=== PATIENT | male | born 1955 | race Caucasian/White ===

== ENCOUNTER 2019-01-03 06:49 | Day surgery (SDC) | payer MEDICARE ==
[2019-01-03] MEDS ORDERED: Propofol 200 MG/20 ML SDV ONE (07:51)
[2019-01-03] MEDS ORDERED: Midazolam 1 MG/ML 2 ML SDV ONE (07:51)
[2019-01-03] MEDS ORDERED: fentaNYL 100 MCG/2 ML SDV ONE (07:51)
[2019-01-03] MEDS ORDERED: Sodium Chloride 0.9% 1,000 ML IV SCH (08:30)
--- NOTE | 2019-01-03 13:37 | PROC ---
DATE OF PROCEDURE: 01/03/2019 SURGEON: Samson Ulrich MD PROCEDURE: Esophagogastroduodenoscopy. INDICATIONS: He has been having diarrhea and abdominal pain. The risks and benefits were explained to the patient and was taken to the OR. PROCEDURE IN DETAIL: We used the 180 Olympus scope, was placed into the pharynx and the esophagus without difficulty, passed under direct vision, guided into the first and second part of the duodenum. Upon retraction of the tube, noted no ulceration or abnormality in the small intestine. The tube was brought back into the stomach. Retroflexion into the fundus revealed no abnormality. The antrum was unremarkable. No pathology was noted. The GE junction was identified. The remainder of the esophagus was unremarkable. The tube was removed. The patient tolerated the procedure well. PREOPERATIVE DIAGNOSIS: Diarrhea and abdominal pain. POSTOPERATIVE DIAGNOSIS: Normal small intestine, stomach, and esophagus. This does not explain his abdominal pain or his diarrhea. Samson Ulrich MD /[id number]
--- NOTE | 2019-01-03 13:52 | PROC ---
DATE OF PROCEDURE: 01/03/2019 SURGEON: Samson Ulrich MD PROCEDURE: Colonoscopy. INDICATIONS: This is being done because of significant diarrhea. The risks and benefits were explained to the patient and was taken to the OR. PROCEDURE IN DETAIL: Anesthesia was given by nurse warp tier. During the procedure, we used 2 mg of Versed, 2 mL of fentanyl, and 200 mg of propofol. The Olympus 180AL scope was used. It was placed into the rectum and advanced under direct vision. The rectum was very large with no sphincter tone. The tube was advanced and did get to the cecum by using the turbo on the scope. There was significant amount of fluid noted throughout the colon, which was removed by suction. Upon retraction of the tube, there were multiple diverticula noted, but only isolated ones. There were no polyps, lesions, or any other abnormality, including the rectum, with no pathology except for the dilated rectal os. The tube was removed. The patient tolerated the procedure well. PREOPERATIVE DIAGNOSIS: Diarrhea. POSTOPERATIVE DIAGNOSES: 1. Multiple diverticula, isolated. 2. Dilated rectal os. PLAN: Routine screening should be done for this gentleman. Samson Ulrich MD /[id number]
== END 2019-01-03 10:55 | disposition home or self-care (01) ==
LOC: JP.SDS 06:49
PROVIDERS: ATTEND Internal Medicine
DX: K57.30 Diverticulosis of large intestine without perforation or abscess without bleeding (principal); K62.89 Other specified diseases of anus and rectum; K21.9 Gastro-esophageal reflux disease without esophagitis; D64.9 Anemia, unspecified
CPT/HCPCS: 43235; G0121; J2250; J2704; J3010

== ENCOUNTER 2024-12-14 16:16 | Emergency (ER) | payer MEDICARE | END 2024-12-14 18:41 | disposition home or self-care (01) | LOC: JP.ED 16:16 | DX: K59.01 Slow transit constipation (principal) | CPT/HCPCS: 99283 ==

== ENCOUNTER 2025-05-01 06:13 | Day surgery (SDC) | payer MEDICARE ==
[2025-05-01] MEDS: Lactated Ringers 1,000 ML IV SCH (07:01)
[2025-05-01] MEDS ORDERED: Midazolam 1 MG/ML 2 ML SDV ONE (07:15)
[2025-05-01] MEDS ORDERED: Propofol 200 MG/20 ML SDV ONE ×2 (07:15→08:18)
[2025-05-01] MEDS ORDERED: fentaNYL 50 MCG/ML SDV ONE (07:15)
== END 2025-05-01 09:46 | disposition home or self-care (01) ==
LOC: JP.SDS 06:13
PROVIDERS: ATTEND Internal Medicine
DX: K63.5 Polyp of colon (principal)
CPT/HCPCS: 00811; 45380; J2250; J2704; J3010; J7120